=== PATIENT | female | born 1930 | race Caucasian/White ===

== ENCOUNTER 2016-12-08 10:16 | Emergency (ER) | payer MEDICARE ==
[~2016-12-08 10:16] MED LIST: ANTIVERT25 M1 PO; ASPIR 8181 MG PO; CALCIUM600 MG PO; CYANOCOBALAM1000 MCG PO; FEROSUL325 MG PO; FLEXERIL5 MG PO; FOSAMAX70 MG PO; GLUCAGON EME1 MG/KIT IJ; GLUCOPHAGE500 MG PO; LEVEMIR100 U/M SQ; LISINOPRIL20 MG PO; LISINOPRIL5 MG PO; LOVASTATIN20 M1 PO; LOVASTATIN20 MG PO; METFORMIN HCL500 MG PO; NATURAL CALCIU500 M1 PO; NORVASC2.5 M1; STERAPRED10 MG/DOSE PO; [UNRECOGNIZED DRUG - OTHER] PO
[2016-12-08] MEDS ORDERED: GEMFIBROZIL600 M2 PO (10:51)
[2016-12-08] MEDS ORDERED: ARICEPT10 M2 PO (10:51)
[2016-12-08] MEDS ORDERED: TRAVATAN Z5 M1 RIGHT EYE (10:52)
[2016-12-08] MEDS ORDERED: CENTRUM SILVER1 EAC6 PO (10:53)
[2016-12-08] MEDS ORDERED: ULTRAM50 M1 PO (13:03)
== END 2016-12-08 13:46 ==
LOC: EDMED 10:16
PROC: 0HQ1XZZ Repair Face Skin, External Approach (ICD-10-PCS; principal; 2016-12-08)
DX: S82.001A Unspecified fracture of right patella, initial encounter for closed fracture (principal); S01.511A Laceration without foreign body of lip, initial encounter; I10 Essential (primary) hypertension; E11.9 Type 2 diabetes mellitus without complications; Z79.899 Other long term (current) drug therapy; Z86.73 Personal history of transient ischemic attack (TIA), and cerebral infarction without residual deficits; W18.09XA Striking against other object with subsequent fall, initial encounter; Y92.22 Religious institution as the place of occurrence of the external cause